=== PATIENT | female | born 1985 | race Caucasian/White ===

== ENCOUNTER 2017-01-10 18:23 | Emergency (ER) | payer MEDICAID ==
[~2017-01-10] VITALS: Ht 167.6 cm; Wt 118.3 kg
[~2017-01-10 18:23] MED LIST: ACET-1600 PO; ALBU18HF INH; ALPR0.25 PO; CETI10TA24 PO; MONT10TA6 PO; PRED20TA PO
[2017-01-10 18:26] VITALS: BP 122/82
[2017-01-10 18:53] LABS: HEMATOCRIT 46.8 % (34.6-47.8); HEMOGLOBIN 15.5 g/dL (11.7-16.4); WHITE BLOOD COUNT 12.5 x10^3/uL (3.4-10)
[2017-01-10 19:03] LABS: ASPARTATE AMINO TRANSFERASE 16 U/L (15-37); BLOOD UREA NITROGEN 11 mg/dL (7-18)
[2017-01-10 19:08] LABS: IS PT STATUS REG ER OR PRE ER? YES
== END 2017-01-10 19:58 | disposition home or self-care (01) ==
LOC: ED 19:50
DX: M94.0 Chondrocostal junction syndrome [Tietze] (principal); B34.9 Viral infection, unspecified; F32.9 Major depressive disorder, single episode, unspecified; Z87.891 Personal history of nicotine dependence
CPT/HCPCS: 36415; 71010; 80053; 83690; 84484; 84703; 85025; 93005; 99285

== ENCOUNTER 2017-02-28 22:06 | Emergency (ER) | payer MEDICAID ==
[~2017-02-28] VITALS: Ht 167.6 cm; Wt 120.4 kg
[2017-02-28 23:35] LABS: BASOPHILS # (AUTO) 0.09 x10^3/uL (0-0.1); BASOPHILS % (AUTO) 1 % (0-1); EOSINOPHILS # (AUTO) 1.04 x10^3/uL (0-0.4); EOSINOPHILS % (AUTO) 8 % (1-7); LYMPHOCYTES # (AUTO) 3.44 x10^3/uL (1-3.4); LYMPHOCYTES % (AUTO) 27 % (22-44); MD NO; MEAN CORPUSCULAR HEMOGLOBIN 28.1 pg (27.0-34.8); MEAN CORPUSCULAR HGB CONC 32.7 g/dL (32.4-35.8); MEAN CORPUSCULAR VOLUME 85.9 fL (80-100); MEAN PLATELET VOLUME 8.1 fL (7.4-10.4); MONOCYTES # (AUTO) 0.81 x10^3/uL (0.2-0.8); MONOCYTES % (AUTO) 6 % (2-9); NEUTROPHILS # (AUTO) 7.17 x10^3/uL (1.8-6.8); NEUTROPHILS % (AUTO) 57 % (42-75); PLATELET COUNT 312 x10^3/uL (130-400); RED BLOOD COUNT 5.09 x10^6/uL (3.82-5.3); RED CELL DISTRIBUTION WIDTH 13.2 % (9.6-15.2)
[2017-02-28 23:46] LABS: ALANINE AMINOTRANSFERASE 25 U/L (12-78); ALBUMIN 3.2 g/dL (3.4-5.0); ANION GAP 6 mmol/L (5-15); CALCIUM 8.5 mg/dL (8.5-10.1); CHLORIDE 108 mmol/L (98-107); CREATININE 0.81 mg/dL (0.55-1.02)
[2017-02-28 23:49] LABS: ALKALINE PHOSPHATASE 76 U/L (45-117); BILIRUBIN,TOTAL 0.2 mg/dL (0.2-1.0); TOTAL PROTEIN 7.3 g/dL (6.4-8.2)
[2017-02-28 23:53] LABS: HCG UR SG 1.019 (1.003-1.030); MICROSCOPIC AUTO
[2017-02-28 23:54] LABS: CULTURE INDICATED? YES
[2017-03-01] MEDS ORDERED: KETOROLAC 30 MG/1 ML ONE (00:59)
[2017-03-01] MEDS ORDERED: KETOROLAC 30 MG/1 ML IM ONE (01:00)
[2017-03-01 01:08] VITALS: BP 122/61
[2017-03-02] MEDS ORDERED: ALPR-475 PO (14:20)
== END 2017-03-01 01:10 | disposition home or self-care (01) ==
LOC: ED 23:16
DX: R10.84 Generalized abdominal pain (principal)
CPT/HCPCS: 36415; 74021; 76830; 80053; 81001; 81025; 83690; 85025; 87086; 96372; 99285; J1885

== ENCOUNTER → 2017-03-02 | Outpatient (CLI) | payer MEDICAID ==
[~2017-03-02] MED LIST changes: +ALPR-475 PO
== END ==
LOC: STAR 13:41
PROVIDERS: ATTEND Otolaryngology
DX: Z02.9 Encounter for administrative examinations, unspecified (principal)

== ENCOUNTER 2017-03-06 09:56 | Day surgery (SDC) | payer MEDICAID ==
[2017-03-02 14:13] VITALS: BP 111/74
[~2017-03-06] VITALS: Ht 167.6 cm; Wt 118.8 kg
[~2017-03-06 09:56] MED LIST changes: +BACITRACIN OINT 500U/GM, 15 GM ONE; +EPINEPHRINE 1 MG/ML, 1ML ONE; +LIDOCAINE/PF 1%-EPI 1:200K, 30 ML ONE; +OXYMETAZOLINE NASAL SPRAY 0.05%, 15ML ONE
[2017-03-06] MEDS ORDERED: MIDAZOLAM 1 MG/ML, 2ML ONE (10:02)
[2017-03-06] MEDS ORDERED: FENTANYL PF 250 MCG/5ML ONE (10:03)
[2017-03-06] MEDS ORDERED: LIDOCAINE GEL 2%, 5ML ONE (10:09)
[2017-03-06] MEDS ORDERED: ONDANSETRON 2MG/ML, 2ML ONE (10:09)
[2017-03-06] MEDS ORDERED: CEFAZOLIN 1,000 MG ONE (10:09)
[2017-03-06] MEDS ORDERED: PROPOFOL 10 MG/ML, 20ML ONE (10:09)
[2017-03-06] MEDS ORDERED: SUCCINYLCHOLINE 20 MG/ML, 10ML ONE (10:09)
[2017-03-06] MEDS ORDERED: DEXAMETHASONE 4 MG/ML, 1ML ONE ×2 (10:09)
[2017-03-06 10:36] LABS: HCG UR SG 1.026 (1.003-1.030)
[2017-03-06] MEDS ORDERED: LACTATED RINGERS 1,000 ML IV SCH (11:00)
[2017-03-06] MEDS ORDERED: ROCURONIUM 10 MG/ML,10ML ONE (11:17)
[2017-03-06] MEDS ORDERED: EPINEPHRINE TOPICAL SOLN 1 MG/ML, 30ML TP ONE (11:49)
[2017-03-06] MEDS ORDERED: FLUORESCEIN OPHTHALMIC 1 MG STRIP HOMEOPHTH ONE (11:50)
[2017-03-06] MEDS ORDERED: ALBUTEROL SULFATE 2.5 MG/3 ML NPPB PRN (12:00)
[2017-03-06] MEDS ORDERED: DIAZEPAM 5 MG/ML, 2ML IVPush PRN (12:00)
[2017-03-06] MEDS ORDERED: MIDAZOLAM 1 MG/ML, 2ML IV PRN (12:00)
[2017-03-06] MEDS ORDERED: LORazepam 2 MG/ML, 1ML IVPush PRN (12:00)
[2017-03-06] MEDS ORDERED: hydrALAzine 20 MG/ML, 1ML IV PRN (12:00)
[2017-03-06] MEDS ORDERED: ALBUTEROL/IPRATROPIUM 2.5MG/0.5MG, 3 ML NPPB PRN (12:00)
[2017-03-06] MEDS ORDERED: ACETAMINOPHEN 325 MG TABLET PO PRN (12:00)
[2017-03-06] MEDS ORDERED: PROMETHAZINE 25 MG/ML, 1ML IV PRN (12:00)
[2017-03-06] MEDS ORDERED: ONDANSETRON 2MG/ML, 2ML IVPush PRN (12:00)
[2017-03-06] MEDS ORDERED: MEPERIDINE/PF 25MG/0.5ML IVPush PRN (12:00)
[2017-03-06] MEDS ORDERED: METOCLOPRAMIDE 5 MG/ML, 2ML IV PRN (12:00)
[2017-03-06] MEDS ORDERED: LABETALOL 5MG/ML, 20ML IV PRN (12:00)
[2017-03-06] MEDS ORDERED: FENTANYL PF 100 MCG/2ML ONE ×3 (12:31→14:05)
[2017-03-06] MEDS ORDERED: LIDOCAINE-MPF 2% ,5ML ONE ×2 (12:46)
[2017-03-06] MEDS ORDERED: ALBUTEROL HFA 90 MCG/SPRAY ONE (12:48)
[2017-03-06] MEDS ORDERED: HYDROmorphone 2 MG/ML, 1ML ONE ×3 (13:24→15:15)
[2017-03-06] MEDS ORDERED: ACETAMINOPHEN 650 MG/20.3 ML UDC ONE (14:05)
[2017-03-06] MEDS ORDERED: OXYcodone 5 MG/5 ML ORAL.SOL UDC ONE ×2 (14:06→14:29)
[2017-03-06] MEDS: FENTANYL PF 100 MCG/2ML IV PRN ×2 (14:07→14:14)
[2017-03-06] MEDS: OXYcodone 5 MG/5 ML ORAL.SOL UDC PO PRN ×2 (14:11→14:30)
[2017-03-06] MEDS ORDERED: ALBUTEROL/IPRATROPIUM 2.5MG/0.5MG, 3 ML ONE (14:18)
[2017-03-06] MEDS: HYDROmorphone 1 MG/ML, 1ML IV PRN ×6 (14:28→15:32)
[2017-03-06] MEDS ORDERED: LORazepam 2 MG/ML, 1ML ONE (14:48)
[2017-03-06] MEDS ORDERED: EPINEPHRINE TOPICAL SOLN 1 MG/ML, 30ML ONE (16:29)
[2017-03-06] MEDS ORDERED: FLUORESCEIN OPHTHALMIC 1 MG STRIP ONE (16:30)
[2017-03-06] MEDS ORDERED: morphine SULFATE 10 MG/ML, 1ML IVPush PRN (17:00)
== END 2017-03-06 19:00 | disposition home or self-care (01) ==
LOC: OUT 09:56
PROVIDERS: ATTEND Otolaryngology
DX: J01.01 Acute recurrent maxillary sinusitis (principal); J32.2 Chronic ethmoidal sinusitis; J32.0 Chronic maxillary sinusitis; J34.3 Hypertrophy of nasal turbinates; J33.9 Nasal polyp, unspecified; J45.909 Unspecified asthma, uncomplicated; K21.9 Gastro-esophageal reflux disease without esophagitis
CPT/HCPCS: 30140; 31240; 31255; 31267; 31276; 31288; 61782; 81025; 87070; 87075; 87077; 87186; 87205; 88304; 88311; 94640; J0171; J0330; J0690; J1100; J1170; J2060; J2250; J2270; J2405; J2704; J3010; J3490; J7120; J7620

== ENCOUNTER 2017-10-12 20:29 | Emergency (ER) | payer MEDICAID ==
[~2017-10-12] VITALS: Ht 167.6 cm; Wt 122.5 kg
[~2017-10-12 20:29] MED LIST changes: -BACITRACIN OINT 500U/GM, 15 GM ONE; -EPINEPHRINE 1 MG/ML, 1ML ONE; -LIDOCAINE/PF 1%-EPI 1:200K, 30 ML ONE; -OXYMETAZOLINE NASAL SPRAY 0.05%, 15ML ONE
[2017-10-12] MEDS ORDERED: LORazepam 1MG TABLET PO ONE ×2 (21:00→21:30)
[2017-10-12] MEDS ORDERED: LORazepam 1MG TABLET ONE ×2 (21:12→21:26)
[2017-10-12 21:39] LABS: BASOPHILS # (AUTO) 0.04 x10^3/uL (0-0.1); BASOPHILS % (AUTO) 0 % (0-1); EOSINOPHILS # (AUTO) 0.67 x10^3/uL (0-0.4); EOSINOPHILS % (AUTO) 6 % (1-7); LYMPHOCYTES # (AUTO) 3.17 x10^3/uL (1-3.4); LYMPHOCYTES % (AUTO) 29 % (22-44); MD NO; MEAN CORPUSCULAR HEMOGLOBIN 28.8 pg (27.0-34.8); MEAN CORPUSCULAR HGB CONC 33.6 g/dL (32.4-35.8); MEAN CORPUSCULAR VOLUME 85.8 fL (80-100); MEAN PLATELET VOLUME 8.4 fL (7.4-10.4); MONOCYTES # (AUTO) 0.89 x10^3/uL (0.2-0.8); MONOCYTES % (AUTO) 8 % (2-9); NEUTROPHILS # (AUTO) 6.08 x10^3/uL (1.8-6.8); NEUTROPHILS % (AUTO) 56 % (42-75); PLATELET COUNT 289 x10^3/uL (130-400); RED BLOOD COUNT 4.92 x10^6/uL (3.82-5.3); RED CELL DISTRIBUTION WIDTH 13.5 % (9.6-15.2)
[2017-10-12 21:48] LABS: ALANINE AMINOTRANSFERASE 21 U/L (12-78); ALBUMIN 3.2 g/dL (3.4-5.0); ANION GAP 2 mmol/L (5-15); CALCIUM 8.5 mg/dL (8.5-10.1); CHLORIDE 109 mmol/L (98-107); CREATININE 1.14 mg/dL (0.55-1.02)
[2017-10-12 21:53] LABS: ALKALINE PHOSPHATASE 84 U/L (45-117); BILIRUBIN,TOTAL 0.2 mg/dL (0.2-1.0)
[2017-10-12] MEDS ORDERED: KETOROLAC 30 MG/1 ML IM ONE (22:30)
[2017-10-12] MEDS ORDERED: KETOROLAC 30 MG/1 ML ONE (22:30)
[2017-10-12 22:37] VITALS: BP 131/74
== END 2017-10-12 23:03 | disposition home or self-care (01) ==
LOC: ED 22:41
DX: T78.40XA Allergy, unspecified, initial encounter (principal); L03.113 Cellulitis of right upper limb; R53.1 Weakness; J45.909 Unspecified asthma, uncomplicated; Z79.899 Other long term (current) drug therapy; Y92.9 Unspecified place or not applicable
CPT/HCPCS: 36415; 80053; 80307; 84703; 85025; 96372; 99284; J1885

== ENCOUNTER 2020-01-12 09:31 | Emergency (ER) | payer BC, MEDICAID ==
[~2020-01-12] VITALS: Ht 167.6 cm; Wt 135.2 kg
[~2020-01-12 09:31] MED LIST changes: -ALPR-475 PO; +ALPR0.5T7 PO; -CETI10TA24 PO; +CETI10TA76 PO
--- NOTE | 2020-01-12 12:41 | NUR ---
PT. COMES IN C/O SOB, DIZZINESS, COUGH X1 WEEK. C/O GROSSMAN, WEAKNESS, AND CHEST RASH WITH ITCHING. STATES HX OF ASTHMA WITH USE OF INHALER THIS AM. MONITORS CONNECTED. CXR COMPLETE. AWAITING ORDERS.
[2020-01-12] MEDS ORDERED: ALBUTEROL SULFATE 2.5 MG/3 ML NPPB SCH (13:30)
[2020-01-12] MEDS ORDERED: ALBUTEROL SULFATE 2.5 MG/3 ML ONE (13:43)
--- NOTE | 2020-01-12 13:52 | NUR ---
PT RESTING ON [facility]. STEROIDS ADMINISTERED. COVID TEST PENDING. NEBULIZER ADMINISTERING. VSS. NAD. PT STATES NO NEEDS AT THIS TIME
[2020-01-12 13:58] LABS: BASOPHILS % (AUTO) 1 % (0-1); EOSINOPHILS % (AUTO) 10 % (1-7); LYMPHOCYTES % (AUTO) 24 % (22-44); MD NO; MEAN CORPUSCULAR HEMOGLOBIN 28.3 pg (27.0-34.8); MEAN CORPUSCULAR HGB CONC 33.1 g/dL (32.4-35.8); MONOCYTES % (AUTO) 7 % (2-9); NEUTROPHILS % (AUTO) 59 % (42-75); PLATELET COUNT 323 x10^3/uL (130-400); RED BLOOD COUNT 5.03 x10^6/uL (3.82-5.3); RED CELL DISTRIBUTION WIDTH 13.6 % (9.6-15.2)
[2020-01-12 14:07] LABS: ALANINE AMINOTRANSFERASE 21 U/L (12-78); ALBUMIN 3.3 g/dL (3.4-5.0); ANION GAP 4 mmol/L (5-15); CALCIUM 8.9 mg/dL (8.5-10.1); CHLORIDE 109 mmol/L (98-107); CREATININE 0.78 mg/dL (0.55-1.02)
[2020-01-12 14:11] LABS: ALKALINE PHOSPHATASE 88 U/L (45-117); BILIRUBIN,TOTAL 0.5 mg/dL (0.2-1.0); TOTAL PROTEIN 7.5 g/dL (6.4-8.2)
[2020-01-12 14:48] VITALS: BP 129/66
--- NOTE | 2020-01-12 14:50 | NUR ---
PT. STATES BREATHING 50% BETTER FOLLOWING BREATHING TREATMENT. RESTING IN [place]. VSS. NAD
--- NOTE | 2020-01-12 15:06 | NUR ---
PT. DISCHARGED. DISCHARGE INSTRUCTIONS EXPLAINED TO PT. AND RX GIVEN. PT. VERBALIZES UNDERSTANDING. PT. AMBULATED TO VEHICLE WITHOUT INCIDENT
== END 2020-01-12 15:08 | disposition home or self-care (01) ==
LOC: ED 12:59
DX: R06.00 Dyspnea, unspecified (principal); Z20.828 Contact with and (suspected) exposure to other viral communicable diseases; R05 Cough; J45.909 Unspecified asthma, uncomplicated
CPT/HCPCS: 36415; 71045; 80053; 82728; 83615; 85025; 87635; 94640; 99284; J7512; J7613

== ENCOUNTER 2020-05-10 09:50 | Emergency (ER) | payer BC ==
[~2020-05-10] VITALS: Ht 167.6 cm; Wt 137.9 kg
[2020-05-10 09:55] VITALS: BP 120/76
--- NOTE | 2020-05-10 10:14 | NUR ---
TO FRANK FROM LOBBY
--- NOTE | 2020-05-10 10:16 | NUR ---
MAURICIO RN: THIS IS A 35 YEAR OLD FEMALE WHO C/O PT HAS CO COUGH, SORE THROAT AND FEVER OF 100. STARTED YESTERDAY. PT HAS A HX OF ASTHMA
== END 2020-05-10 11:19 | disposition home or self-care (01) ==
LOC: ED 11:00
DX: B34.9 Viral infection, unspecified (principal); Z20.822 Contact with and (suspected) exposure to COVID-19; J45.909 Unspecified asthma, uncomplicated
CPT/HCPCS: 99283; U0003

== ENCOUNTER 2020-08-06 12:22 | Emergency (ER) | payer BC, MEDICAID ==
[~2020-08-06] VITALS: Ht 167.6 cm; Wt 139.6 kg
[2020-08-06 12:26] VITALS: BP 144/73
--- NOTE | 2020-08-06 15:37 | NUR ---
color control supervisor: attempted to move patient from lobby to room, no answer in lobby
== END 2020-08-06 15:51 | disposition left against medical advice (07) ==
LOC: ED 14:19
DX: R20.2 Paresthesia of skin (principal); R07.9 Chest pain, unspecified; Z53.21 Procedure and treatment not carried out due to patient leaving prior to being seen by health care provider
CPT/HCPCS: 93005; 99283